=== PATIENT | female | born 1955 | race Caucasian/White ===

== ENCOUNTER 2017-07-18 12:30 | Inpatient (IN) | payer BC ==
[2017-07-22] MEDS ORDERED: FAMOTIDINE 20MG TABLET PO ONE (06:00)
[2017-07-22] MEDS ORDERED: METOCLOPRAMIDE 10 MG TABLET PO ONE (06:00)
[2017-07-22] MEDS ORDERED: CELECOXIB 100 MG CAPSULE PO ONE ×2 (06:00→16:27)
[2017-07-22] MEDS ORDERED: VANCOMYCIN HCL 1,000 MG in 0.9 % SODIUM CHLORIDE 250ML 250 ML IVPB ONE (06:00)
[2017-07-22] MEDS ORDERED: CEFAZOLIN 2 Gram 2 GM/50 ML BAG IVPB ONE (06:00)
[2017-07-22] MEDS ORDERED: MECLIZINE 25 MG TABLET PO ONE (06:00)
[2017-07-22] MEDS ORDERED: ACETAMINOPHEN 1,000 MG/100 ML BTL IV ONE (06:00)
[2017-07-22 06:49] LABS: ABO GROUP A; ANTIBODY SCREEN NEGATIVE (NEGATIVE); RH TYPE POSITIVE
[2017-07-22] MEDS ORDERED: KETOROLAC 30 MG/ML VIAL IVP PRN ×2 (10:06)
[2017-07-22] MEDS ORDERED: NALOXONE 0.4 MG/1 ML VIAL IVP PRN (10:06)
[2017-07-22] MEDS ORDERED: HYDROMORPHONE HCL 2 MG/ML VIAL IM PRN (10:06)
[2017-07-22] MEDS ORDERED: ACETAMINOPHEN W/ CODEINE 300MG/60MG TABLET PO PRN ×2 (10:06)
[2017-07-22] MEDS ORDERED: ACETAMINOPHEN 325 MG TAB PO PRN (10:06)
[2017-07-22] MEDS ORDERED: BISACODYL 10 MG SUPP RC PRN (10:06)
[2017-07-22] MEDS ORDERED: TRAMADOL HCL 50 MG TABLET PO PRN (10:06)
[2017-07-22] MEDS ORDERED: DIPHENHYDRAMINE HCL 25 MG CAPSULE PO PRN (10:06)
[2017-07-22] MEDS ORDERED: AL HYDROX/MAG HYDROX 30ML UD PO PRN (10:06)
[2017-07-22] MEDS ORDERED: MAGNESIUM HYDROXIDE 30 ML UDC PO PRN (10:06)
[2017-07-22] MEDS ORDERED: ZOLPIDEM TARTRATE 5 MG TABLET PO PRN (10:06)
[2017-07-22] MEDS ORDERED: ONDANSETRON HCL IV 4 MG/2 ML VIAL IVP PRN (10:06)
[2017-07-22] MEDS ORDERED: DOCUSATE SODIUM 100 MG PO PRN (11:10)
[2017-07-22] MEDS: HYDROMORPHONE HCL 1MG/ML **SYRINGE IM PRN ×2 (12:45→20:16)
[2017-07-22] MEDS: POTASSIUM CHLORIDE/D5-0.9%NACL 20 MEQ/1,000 ML BAG IV SCH ×2 (13:17→20:21)
--- NOTE | 2017-07-22 15:13 | Rehab Evaluation ---
Patient Information - Patient Information Diagnosis: L DJD Ordered Treatment: PT Evaluate and Treat Status: Initial Evaluation Surgery: Yes Date of Surgery: 07/22/17 Past Medical/Surgical Hx: PAST MEDICAL/SURGICAL HISTORY Past Surgical History right total knee; right knee arthroscopy; left knee arthroscopy; lap shaka; right shoulder NAYA; x 2; colonoscopy. PMH - Respiratory Hx Respiratory Disorders No PMH - Cardiovascular Hx Cardiovascular Disorders Yes Hx Hypertension Yes: meds good control Hx Heart Murmur Yes: as child-no problem Exercise Tolerance Good PMH - Neuro Hx Neurological Disorders No PMH - GI Hx Gastrointestinal Disorders Yes Hx Gastroesophageal Reflux Yes: pepcid rx PMH - Hx Genitourinary Disorders Yes Hx Bladder Problem Yes: stress incont-wears Depends PMH - Endocrine Hx Endocrine Disorders No PMH - Musculoskeletal Hx Musculoskeletal Disorders Yes Hx Arthritis Yes: knees Comment: Rickets as a child PMH - Psych Hx Psychiatric Problems No PMH - Hematology/Oncology Hx Hematology/Oncology Yes Disorders Hx Bruising Yes: easy to bruise Premorbid Status: Detail (The patient was independent with ambulation without device.) Social History: Detail (The patient lives with spouse in ranch style home with 3 steps at the enterance. The patient's bathroom is equipped with a regular tub /shower combination and a raised toilet seat. The patient's spouse stated his is borrowing a tub seat. The patient has a wheeled walker, single point and quad cane.) Precautions: Hitchcock, Other (WBAT on the L LE) - Time With Patient Total Time Spent With Patient (Min): 30 Treatment Procedures: Detail (Initial Evaluation) Subjective Information - Subjective Information Per Patient (The paitent had complaints of level 6 pain in L knee.) Objective Data - Mental Status Patient Orientation: Oriented x3 - Visual Perception Appears within normal limits for therapeutic activities - ROM Not within normal limits (The patient's L knee AROM was not tested secondary to status post surgery. All other LE AROM is WNL.) - Strength/Tone Not within normal limits (The patient's UE strength is generally 5/5, R LE strength 4+ to 5/5, L LE strength was functional the patient was able to lift L LE out of bed and required minimal assist using R LE to lift left back into bed. ) - Bed Mobility Independent (Independent with supine to and from sit transfer. The patient used R LE to lift L LE with sit to supine transfer.) - Transfers Independent (Independent sit to and from stand transfer and toilet transfer.) - Balance Balance Sitting: Good Balance Standing: Good (The patient was able to drapery cutter machine bathroom and pull up pants.) - Gait Detail (The patient ambulated independently with wheeled walker a disance of 13 feet x 2 with weight bearing as tolerated on the L LE with assist of one to handle IV.) - ADL's/IADL's Detail Therapy Assessment - Therapy Assessment Detail (The patient was independent with mobility and transfers. Home exercise program was reviewed including quad sets, gluteal set and ankle pumps. The patient will progress well with mobility.) Problem List - Problem List Physical Therapy Problem List: Detail (1) Decreased L knee AROM and L LE Strength 2) Inability to ambulate on stairs) Goals - Goals Physical Therapy Goals: 1) Independent with ambulation with assistive device 50 to 100 feet WBAT on the L LE. 2) Independent ambulation on stairs. 3) Independent with HEP Prognosis - Prognosis Good Plan - Plan Physical Therapy Plan: PT 2 times a day for gait training, transfer training and instruction in HEP until all inpatient PT goals are met.
[2017-07-22] MEDS ORDERED: HYDROMORPHONE HCL 2 MG/ML VIAL IV ONE (16:18)
[2017-07-22] MEDS ORDERED: LIDOCAINE 2% MDV (20MG/ML) 20ML VIAL IV ONE (16:18)
[2017-07-22] MEDS ORDERED: MIDAZOLAM HCL 2MG/2ML VIAL IV ONE (16:18)
[2017-07-22] MEDS ORDERED: 0.9 % SODIUM CHLORIDE 10 ML VIAL IVP ONE (16:18)
[2017-07-22] MEDS ORDERED: DIPHENHYDRAMINE HCL IV 50 MG/ML VIAL IVP ONE (16:18)
[2017-07-22] MEDS ORDERED: FENTANYL PF 100MCG/2ML VIAL IV ONE (16:18)
[2017-07-22] MEDS: HYDROCODONE/APAP 10/325 TABLET PO PRN ×3 (16:18→22:50)
[2017-07-22] MEDS ORDERED: EPHEDRINE SULFATE 50 MG/ML ML IV ONE (16:18)
[2017-07-22] MEDS ORDERED: PROPOFOL 10 MG/ML VIAL IV ONE (16:18)
[2017-07-22] MEDS: CEFAZOLIN 2 Gram 2 GM/50 ML BAG IVPB SCH ×2 (16:19→22:51)
[2017-07-22] MEDS ORDERED: BUPIVACAINE 0.5% W/EPI MPF 30 ML VIAL IVP ONE (16:27)
[2017-07-22] MEDS ORDERED: TRANEXAMIC ACID 1,000 MG/10 ML ML IV ONE (16:27)
--- NOTE | 2017-07-22 17:40 | Operative Note ---
DATE OF SURGERY: 07/22/2017 PREOPERATIVE DIAGNOSIS: End-stage arthrosis of the left knee. POSTOPERATIVE DIAGNOSIS: End-stage arthrosis of the left knee. OPERATION: Cemented left total knee arthroplasty using Killian [employer] Nephew Kristina II components with a size 5 Oxinium femur, a size 4 stem tibia baseplate, a 9 mm lipped highly cross-linked tibial insert, and a 35 mm all plastic patella. Surgeon: Jose Feldman MD Anesthesia: Spinal. PREPARATION: Chloraprep. INDIVIDUAL CONSIDERATIONS: None. PROCEDURE: The patient was taken to the operating room, placed supine on the operating room table. She had a successful induction with general anesthetic. The left lower extremity was prepped and draped in the usual fashion. The limb was elevated, tourniquet was inflated to 250 mmHg. The patient had midline approach to the knee. Sharp dissection carried down through skin and subcutaneous tissue. Small veins were coagulated with a Bovie. A medial arthrotomy was performed. The patella was everted and the knee was flexed. Patient had exposed bone in the patellofemoral compartment. The capsule was released to the medial proximal tibia. ACL was sacrificed. Provisional anterior meniscectomies were performed. The initial femoral stewardesses teacher hole was then made freehand. The intramedullary femoral cutting jig was placed. It was cut in 7.0 degrees of valgus and adjusted for rotation and secured with pins for a 10 mm resection. The initial transverse cut was then made. Skin guide was placed for the anterior and posterior stewardesses teacher holes. It was found that a size 5 would be appropriate but I did have to translate it anteriorly 2 mm using the translation guide. The anterior and posterior cuts followed by chamfer cuts were made. Osteophytes removed and a size 5 trial was placed and found to fit well. The tibia was brought forward and the remainder of the meniscal remnants removed with a Bovie. The extraarticular tibial cutting jig was placed. It was cut in neutral with a 3-degree AP slope. Care was taken to adjust the rotation and flexion using the extraarticular alignment guide and bony landmarks. It was set for a 9 mm resection keyed off the high lateral side and secured with pins. When cutting the tibia, care was taken to preserve the PCL insertion on the tibia. Osteophytes removed and I found I could fit a size 4. It was adjusted for rotation and secured with pins. The 9 mm trial and femoral trial, though, was excellent motion and stability, ligamentous balance, rotation, alignment, and patellofemoral tracking were normal. The femoral stewardesses teacher holes were impacted and the tri-flange tibial stamp was impacted, and these trial components were removed. The patient had a thick patella and I removed 9 mm using the oscillating saw. I was able to fit a 35 patella, and the 3 stewardesses teacher holes were drilled. Tourniquet was let down briefly to get bleeders posteriorly and then placed back up again. The knee was then thoroughly irrigated out with pulsatile Betadine and saline to remove any visual or palpable debris. Bony surfaces were then dried. The size 4 stem tibia baseplate was then cemented into place followed by impaction of the 9 mm highly crosslinked tibial insert followed by cementing of the size 5 Oxinium femur followed by cementing of the 35 mm patella. The implant surfaces were compressed, excess cement was removed, and after the cement had set, there was excellent motion and stability, ligamentous balance, rotation, alignment, and patellofemoral tracking were normal. No lateral release was required. The knee was then again thoroughly irrigated out with pulsatile Betadine and saline. The skin and subcutaneous tissue and periosteum were then infiltrated with 30 mL of 0.5% Marcaine with epinephrine. The capsule was then closed with a running #2 quill, subcu was closed with running 0 quill, skin was closed with sai, and a sterile bulky compressive Aquacel dressing was applied. Prior to this, I did mix 1 g of tranexamic acid with 30 mL of saline and injected into the knee. The patient did receive 1 g of tranexamic acid IV prior to the procedure. The patient tolerated the procedure well. Needle and sponge counts were correct. Estimated blood loss was minimal, and he was taken back to recovery in good condition. There were no complications. CC: Dr. Janell [place]
[2017-07-22] MEDS: DOCUSATE SODIUM 100 MG CAPSULE PO SCH (22:49)
[2017-07-23] MEDS: HYDROMORPHONE HCL 1MG/ML **SYRINGE IM PRN ×2 (01:23→05:28)
[2017-07-23] MEDS: CEFAZOLIN 2 Gram 2 GM/50 ML BAG IVPB SCH (06:50)
[2017-07-23] MEDS: HYDROCODONE/APAP 10/325 TABLET PO PRN ×4 (06:51→21:54)
[2017-07-23] MEDS: POTASSIUM CHLORIDE/D5-0.9%NACL 20 MEQ/1,000 ML BAG IV SCH ×3 (06:54→18:55)
[2017-07-23 06:55] LABS: HEMATOCRIT 34.2 % (35.0-47.0); HEMOGLOBIN 10.6 gm/dl (11.6-16.0)
[2017-07-23 07:10] LABS: BLOOD UREA NITROGEN 34.1 mg/dL (17.4-49.2)
[2017-07-23] MEDS: RIVAROXABAN 10 MG TABLET PO SCH (10:43)
[2017-07-23] MEDS: DOCUSATE SODIUM 100 MG CAPSULE PO SCH ×2 (10:43→21:53)
[2017-07-23] MEDS: FERROUS SULFATE 325 MG TAB PO SCH (10:43)
[2017-07-23] MEDS: BENAZEPRIL PO SCH (10:45)
[2017-07-23] MEDS: AMLODIPINE PO SCH (10:45)
[2017-07-23] MEDS: PATIENT OWN MED: METOPROLOL SUCCINATE 100 MG PO SCH (10:46)
[2017-07-23] MEDS: PATIENT OWN MED: FAMOTIDINE 20 MG PO SCH (10:46)
--- NOTE | 2017-07-23 11:54 | Physical Therapy Tx Note ---
Physical Therapy Tx Note - Treatment Note Tolerated: Good Total Time Spent With Patient: 30 Physical Therapy Tx Note: Detail (The patient complained of level 10 pain with movement in L LE. The patient was independent with sit to and from stand transfer. The patient ambulated 40 feet x 1 with wheeled walker WBAT on the L LE. The patient ambulated on 3 steps with use of one railing and folded walker WBAT on the L LE with supervision for safety and to steady walker. The patient' s observed the proper technique. The patient's HEP was reviewed including seated heel slides, hamstring sets, quadricep sets, gluteal sets and ankle pumps. The patient and her feel comfortable with all mobility and ambulation on levels and stairs. The patient has met all her inpatient PT goals. ) Physical Therapy Problem List: Detail (1) Decreased L knee AROM and L LE Strength 2) Inability to ambulate on stairs) Physical Therapy Goals: 1) Independent with ambulation with assistive device 50 to 100 feet WBAT on the L LE. 2) Independent ambulation on stairs. 3) Independent with HEP Physical Therapy Plan: The patient has met all inpatient PT goals and is discharged from PT. The patient is to receive Home PT.
[2017-07-23] MEDS ORDERED: OXYCODONE HCL 5 MG TABLET PO ONE (14:11)
--- NOTE | 2017-07-23 15:11 | Rehab Evaluation ---
Patient Information - Patient Information Diagnosis: L knee DJD Ordered Treatment: OT Evaluate and Treat Status: Initial Evaluation Surgery: Yes (left TKA) Date of Surgery: 07/22/17 Past Medical/Surgical Hx: PAST MEDICAL/SURGICAL HISTORY Past Surgical History right total knee; right knee arthroscopy; left knee arthroscopy; lap shaka; right shoulder NAYA; x 2; colonoscopy. PMH - Respiratory Hx Respiratory Disorders No PMH - Cardiovascular Hx Cardiovascular Disorders Yes Hx Hypertension Yes: meds good control Hx Heart Murmur Yes: as child-no problem Exercise Tolerance Good PMH - Neuro Hx Neurological Disorders No PMH - GI Hx Gastrointestinal Disorders Yes Hx Gastroesophageal Reflux Yes: pepcid rx PMH - Hx Genitourinary Disorders Yes Hx Bladder Problem Yes: stress incont-wears Depends PMH - Endocrine Hx Endocrine Disorders No PMH - Musculoskeletal Hx Musculoskeletal Disorders Yes Hx Arthritis Yes: knees Comment: Rickets as a child PMH - Psych Hx Psychiatric Problems No PMH - Hematology/Oncology Hx Hematology/Oncology Yes Disorders Hx Bruising Yes: easy to bruise Premorbid Status: Detail (The patient was independent with ambulation without device.) Social History: Detail (Pt lives with spouse in a 1 story house with basement, she stays on the first floor. She has 2 steps with handrailing at the entrance. She has a walk in shower and a tub/shower combination an elevated and standard height toilet seat and grab bars throughout bathroom. She was Ind with showering, dressing, home mgmt, meal prep, laundry and driving although her spouse will be assisting after discharge. She has a 2 wheeled walker, 3 point cane, straight cane, commode, wheelchair, tire mechanic and sock aid.) Precautions: Garibaldi, Other (WBAT on the L LE) - Time With Patient Total Time Spent With Patient (Min): 45 Treatment Procedures: Detail (OT eval low complexity) Subjective Information - Subjective Information Per Patient Objective Data - Pain Pain Present: Yes (04/19 left knee) - Mental Status Patient Orientation: Oriented x3 - Visual Perception Appears within normal limits for therapeutic activities (Pt wears glasses) - ROM Within normal limits (Geronimo UE AROM WNL) - Strength/Tone Within normal limits (Geronimo UE strength WNL) - Coordination Appears within normal limits for therapeutic activities - Bed Mobility Needs Assist (Ind with supine to sit, min assist to lift left leg for sit to supine.) - Transfers Independent (Ind with sit to stand) - Balance Balance Sitting: Good Balance Standing: Good - Sensation Intact - ADL's/IADL's Detail (Pt able to demonstrate Ind with LE dressing including shorts, socks and sandals. Reviewed modified dressing technique and pt was able to demonstrate.) Therapy Assessment - Therapy Assessment Detail (Pt was Ind with LE dressing and able to demonstrate modified dressing technique.) Problem List - Problem List Physical Therapy Problem List: Detail (1) Decreased L knee AROM and L LE Strength 2) Inability to ambulate on stairs) Occupational Therapy Problem List: Detail (No current OT problems identified.) Goals - Goals Physical Therapy Goals: 1) Independent with ambulation with assistive device 50 to 100 feet WBAT on the L LE. 2) Independent ambulation on stairs. 3) Independent with HEP Occupational Therapy Goals: No current OT goals identified. Prognosis - Prognosis Good Plan - Plan Physical Therapy Plan: The patient has met all inpatient PT goals and is discharged from PT. The patient is to receive Home PT. Occupational Therapy Plan: No further IP OT needed. Recommend home OT visit to assess ADLs/IADLs in the home setting.
[2017-07-24] MEDS: HYDROCODONE/APAP 10/325 TABLET PO PRN ×5 (02:04→21:04)
[2017-07-24 06:37] LABS: HEMATOCRIT 32.3 % (35.0-47.0); HEMOGLOBIN 10.2 gm/dl (11.6-16.0)
[2017-07-24 06:49] LABS: BLOOD UREA NITROGEN 25.8 mg/dL (17.4-49.2); CREATININE 0.9 mg/dL (0.5-0.9); EST GLOMERULAR FILTRATION RATE > 60 mL/min; GLUCOSE,RANDOM 130 mg/dL (74-109)
[2017-07-24] MEDS: DOCUSATE SODIUM 100 MG CAPSULE PO SCH ×2 (10:38→21:03)
[2017-07-24] MEDS: FERROUS SULFATE 325 MG TAB PO SCH (10:38)
[2017-07-24] MEDS: RIVAROXABAN 10 MG TABLET PO SCH (10:38)
[2017-07-24] MEDS: BENAZEPRIL PO SCH (10:55)
[2017-07-24] MEDS: AMLODIPINE PO SCH (10:55)
[2017-07-24] MEDS: PATIENT OWN MED: METOPROLOL SUCCINATE 100 MG PO SCH (10:56)
[2017-07-24] MEDS: PATIENT OWN MED: FAMOTIDINE 20 MG PO SCH (10:56)
--- NOTE | 2017-07-24 11:50 | Discharge Summary ---
DATE OF ADMISSION: 07/22/2017 DATE OF DISCHARGE: 07/23/2017 DATE OF SURGERY: 07/22/2017 HISTORY: The patient is a delightful 62-year-old female who presents with end- stage arthrosis of the left knee. She was admitted after a left total knee arthroplasty. Postoperatively she did well. Her hospital course was unremarkable. She did not require transfusion. The plan is to discharge her home in the care of her family. Home PT visiting nurse has been obtained. She will begin on Xarelto for DVT prophylaxis. She will take a short course of OxyIR followed by Maria R for pain. She will follow up in my office in 4 weeks. The visiting nurse will remove her sutures in 4 weeks. Her discharge condition was good. FINAL DIAGNOSIS: End-stage arthrosis of the left knee. OPERATIONS AND PROCEDURES: Cemented left total knee arthroplasty. ADDENDUM 07/25/2017 @ 1115 The patient was originally going to be discharged on 07/23/2017. That morning she developed shortness of breath and a bit of tachycardia. Dr. Rand was called. The thought was initially that she was over-sedated, and she responded to that but she continued to have problems maintaining oxygenation. CT angiogram was done of the chest, and a small pulmonary embolism was discovered. This was in spite of the fact that she had been maintained on Xarelto for DVT prophylaxis. She did well on oxygen and was mobilizing well on oxygen and was otherwise hemodynamically stable and was followed by Dr. Rand while in the hospital. The plan now is to transfer to home. Her discharge date was changed to 07/25/2017. Visiting nurse will monitor her O2 status and wean as necessary. Her discharge medications will be changed. She will be started on Xarelto 15 mg twice a day and then that will be maintained for 3 weeks and then probably go to 20 mg a day for a period of time as determined by her primary care doctor. I did call her primary care doctor and told her what was going on. They are going to see her in the office in 2 weeks to take a look at management of this issue. I also told the nurse to tell the patient to make sure that along with seeing me in a month, she should make sure to see her primary care doctor in 2 weeks to continue with the care of this pulmonary embolus. Her hospital course and discharge are otherwise unchanged. ANANT
--- NOTE | 2017-07-24 12:33 | RADIOLOGY REPORT ---
EXAM: PORTABLE CHEST HISTORY: SUDDEN ONSET OF CHEST PAIN WITH DIFFICULTY IN BREATHING TWO DAYS AGO POST TOTAL KNEE ARTHROPLASTY. TECHNIQUE: A single mobile semi-erect view of the chest was obtained. Comparison: None. FINDINGS: The cardiac silhouette projects enlarged, mild in degree. There is borderline pulmonary venous hypertension. Minor patchy opacities are noted within the right lung base consistent with atelectasis or less likely infiltrate. The lungs and pleural spaces are otherwise clear. IMPRESSION: 1. MILD CARDIOMEGALY WITH BORDERLINE PULMONARY VENOUS HYPERTENSION. 2. MINOR PATCHY OPACITIES IN THE RIGHT LUNG BASE LIKELY RELATING TO ATELECTASIS OR LESS LIKELY INFILTRATE. JOB NUMBER: [id number] MTDD
[2017-07-25 06:41] LABS: HEMATOCRIT 31.6 % (35.0-47.0); HEMOGLOBIN 9.9 gm/dl (11.6-16.0); MEAN CELL VOLUME 95.8 fl (81-97); MEAN CORPUSCULAR HGB CONC 31.3 g/dl (32-36); PLATELET COUNT 176 K/uL (130-400); RED CELL DISTRIBUTION WIDTH 13.8 % (11.5-14.5); WHITE BLOOD COUNT W/O DIFF 9.5 K/uL (4.2-12.2)
[2017-07-25 07:02] LABS: PLATELET ESTIMATE NORMAL (NORMAL)
[2017-07-25 07:32] LABS: ALBUMIN 3.3 g/dL (4.0-5.0); ALKALINE PHOSPHATASE 122 U/L (35-104); ALT/SGPT 46 U/L (<33); AST/SGOT 36 U/L (10.0-35.0); BLOOD UREA NITROGEN 21.2 mg/dL (17.4-49.2); CREATININE 0.7 mg/dL (0.5-0.9); EST GLOMERULAR FILTRATION RATE > 60 mL/min; GLUCOSE,RANDOM 140 mg/dL (74-109); TOTAL PROTEIN 6.5 g/dL (6.6-8.7)
--- NOTE | 2017-07-25 08:56 | CT ANGIOGRAM REPORT ---
EXAM: CTA OF THE CHEST WITH CONTRAST HISTORY: DIFFICULTY BREATHING. TECHNIQUE: CTA of the chest was performed after intravenous administration of 100 ml of Omnipaque 350 contrast material. Sagittal and coronal MIP images were performed on an independent workstation. Comparison: None. FINDINGS: There is suboptimal opacification of the pulmonary vasculature. There appear to be filling defects in the left lower lobar arterial branches consistent with pulmonary embolism. There is infiltrate in both lung bases. No pleural effusion. There is cardiomegaly without pericardial effusion. No mediastinal or hilar lymphadenopathy. IMPRESSION: 1. SUBOPTIMAL TIMING OF THE CONTRAST BOLUS. THERE APPEAR TO BE PULMONARY EMBOLI IN THE LEFT LOWER LOBE. 2. BILATERAL LOWER LOBE INFILTRATES. NO PLEURAL EFFUSION. 3. CARDIOMEGALY WITHOUT PERICARDIAL EFFUSION. JOB NUMBER: [id number] MTDD
[2017-07-25] MEDS: HYDROCODONE/APAP 10/325 TABLET PO PRN (09:07)
[2017-07-25] MEDS: DOCUSATE SODIUM 100 MG CAPSULE PO SCH (09:07)
[2017-07-25] MEDS: FERROUS SULFATE 325 MG TAB PO SCH (09:08)
[2017-07-25] MEDS: PATIENT OWN MED: FAMOTIDINE 20 MG PO SCH (09:08)
[2017-07-25] MEDS: BENAZEPRIL PO SCH (09:09)
[2017-07-25] MEDS: AMLODIPINE PO SCH (09:09)
[2017-07-25] MEDS: PATIENT OWN MED: METOPROLOL SUCCINATE 100 MG PO SCH (09:09)
[2017-07-25] MEDS ORDERED: RIVAROXABAN 15 MG TABLET PO SCH (10:00)
--- NOTE | 2017-07-25 11:10 | Consult ---
Consult Order Detail - Reason for Consult Consult Date: 07/23/17 - Chief Complaint Chief Complaint: DEGENERATIVE JOINT DISEASE LEFT KNEE HPI Consult - History of Present Illness Admitting Diagnosis: djd left knee History of Present Illness: Ms. Swanson is a 61 y/o female who was admitted post-operatively for left total knee athroplasty. Post-op day #2 a medicine consult was placed for the patient' s new onset shortness of breath desaturation. The patient also reports feeling of nausea just after meals and severe pain in her left knee but no distal lower extremity swelling. She has no previous history of cardiac or lung disease and denies any history of clots or bleeding. On initial evaluation the patient appeared clinically stable with mild shortness of breath and sats in the low 90s on 3-4 liters of oxygen. She was set to be discharged on 07/23 but her symptoms progressed later in the day and she was kept overnight for observation. The patient was unable to tolerate in down titration of oxygen and desaturated in the 80s. She then complained of increasing shortness of breath and chest pain. Stat labs for troponins, and ECG and CXR was ordered which were unrevealing. CTPE was ordered which did show evidence of emboli in the left lower lung lobe. The patient has been on anticoagulation with xarelto post- operatively. ROS Constitutional: Reports: As per HPI. Denies: Chills, Fever, Malaise, Night sweats, Weakness, Weight change Eyes: Reports: As per HPI. Denies: Eye discharge, Eye pain, Photophobia, Vision change - ENT ENT: Reports: As per HPI. Denies: Congestion, Dental pain, Ear pain, Epistaxis , Hearing loss, Throat pain - Respiratory Respiratory: Reports: Other (Shortness of breath) - Cardiovascular Cardiovascular: Reports: Chest pain - Endocrine Endocrine: Reports: As per HPI. Denies: Fatigue, Heat or cold intolerance, Polydipsia, Polyuria - Gastrointestinal Gastrointestinal: Reports: As per HPI. Denies: Abdominal pain, Constipation, Diarrhea, Hematemesis, Hematochezia, Melena, Nausea, Vomiting - Genitourinary Genitourinary: Reports: As per HPI. Denies: Abnormal menses, Discharge, Dyspareunia, Dysuria, Frequency, Hematuria, Incontinence, Retention, Urgency - Musculoskeletal Musculoskeletal: Reports: Other (left knee pain) - Skin Skin: Reports: As per HPI. Denies: Bruising, Change in color, Change in hair/ nails, Lesions, Pruritus, Rash - Hematological/Lymphatic Hematological/Lymphatic: Reports: As per HPI. Denies: Anemia, Blood Clots, Easy bleeding, Easy bruising, Swollen glands Past Medical History - SOCIAL HISTORY Smoking Status: Former smoker Alcohol Use: Occasional Drug Use: None - RESPIRATORY Hx Respiratory Disorders: No - CARDIOVASCULAR Hx Cardio Disorders: Yes Hx Hypertension: Yes (meds good control) - NEURO Hx Neuro Disorders: No - GI Hx GI Disorders: Yes Hx Reflux: Yes (pepcid rx) - Hx Genitourinary Disorders: Yes Hx Bladder Problem: Yes (stress incont-wears Depends) - ENDOCRINE Hx Endocrine Disorders: No - MUSCULOSKELETAL Hx Musculoskeletal Disorders: Yes Hx Arthritis: Yes (knees) Comment:: Rickets as a child - PSYCH Hx Psych Problems: No - HEMATOLOGY/ONCOLOGY Hx Hematology/Oncology Disorders: Yes Hx Bruising: Yes (easy to bruise) Family Medical History Any Significant Family History?: Yes Hx Alcohol Use: Father, Mother Hx Cancer: Brother/Sister *Cancer Comment: 2 sisters -breast CA Hx Diabetes: Brother/Sister *Diabetes Comment: sister Hx Heart Disease: Father Hx HTN: Father H&P Meds - Home Medications and Allergies Allergies Allergy/AdvReac Type Severity Reaction Status Date / Time aspirin Allergy Severe ANAPHYLAXIS Verified 07/18/17 11:49 Physical Exam - Vital Signs Vital Signs: Vital Signs - Last 24 Hrs Temp Pulse Pulse Resp BP Pulse Ox 07/25/17 10:18 93 L 07/25/17 09:00 20 07/25/17 08:00 106 H 20 128/69 93 L 07/25/17 04:52 99.7 F H 103 H 22 136/73 93 L 07/24/17 23:00 98.1 F 88 20 119/73 94 L 07/24/17 20:10 94 H 94 L 07/24/17 18:50 91 H 22 114/57 3 L 07/24/17 14:59 98.4 F 85 18 132/73 97 - General General Appearance: Alert, Oriented x3, Moderate distress Limitations: No limitations - Head Head exam: Atraumatic, Normocephalic - Eye Eye exam: Normal appearance, PERRL - ENT ENT exam: Mucous membranes moist Ear exam: Normal external inspection Nasal Exam: Normal inspection Throat exam: Normal inspection - Neck Neck exam: Normal inspection, Full ROM - Respiratory Respiratory exam: Normal lung sounds bilaterally, Chest wall tenderness. negative: Stridor, Wheezes - Cardiovascular Cardiovascular Exam: Regular rate, Normal rhythm, Clicks - GI/Abdominal GI/Abdominal exam: Soft, Normal bowel sounds - Rectal Rectal exam: Deferred - exam: Deferred - Extremities Extremities exam: Tenderness (left knee ). negative: Calf tenderness, Pedal edema - Skin Skin exam: Dry, Intact, Normal color, Warm Results - Labs Result Diagrams: 07/25/17 06:15 07/25/17 06:15 Labs Last 24 Hours: Laboratory Results - last 24 hr 07/24/17 07/24/17 07/25/17 06:05 10:41 06:15 WBC 9.5 Corrected WBC RBC 3.30 L Hgb 9.9 L Hct 31.6 L MCV 95.8 MCH 30.0 MCHC 31.3 L RDW 13.8 Plt Count 176 MPV 11.0 H Gran % Neutrophils % 91.0 H Band Neutrophils % Lymphocytes % Monocytes % Eosinophils % Not Reportable Basophils % Not Reportable Lymphocytes 5.0 L Monocytes 4.0 Basophils Metamyelocytes Myelocytes Promyelocytes Nucleated RBCs Differential Comment Hypersegmented Polys Plasma Cells Other Cell Type Toxic Granulation Dohle Bodies Abigail Rods Platelet Estimate Normal RBC Morphology Normal Polychromasia Hypochromasia Poikilocytosis Basophilic Stippling Anisocytosis Microcytosis Macrocytosis Spherocytes Sickle Cells Target Cells Tear Drop Cells Ovalocytes Stomatocytes Helmet Cells [place] Bodies [place] Rings [place] Cells Acanthocytes (Spur) Rouleaux Schistocytes Morphology Comment Eosinophil Count Sodium Potassium Chloride Carbon Dioxide Anion Gap BUN Creatinine Estimated GFR Random Glucose Calcium Total Bilirubin AST ALT Alkaline Phosphatase Troponin I < 0.30 < 0.30 Total Protein Albumin Globulin Albumin/Globulin Ratio 07/25/17 07/25/17 06:15 06:15 WBC Cancelled Corrected WBC Cancelled RBC Cancelled Hgb Cancelled Hct Cancelled MCV Cancelled MCH Cancelled MCHC Cancelled RDW Cancelled Plt Count Cancelled MPV Cancelled Gran % Cancelled Neutrophils % Cancelled Band Neutrophils % Cancelled Lymphocytes % Cancelled Monocytes % Cancelled Eosinophils % Cancelled Basophils % Cancelled Lymphocytes Cancelled Monocytes Cancelled Basophils Cancelled Metamyelocytes Cancelled Myelocytes Cancelled Promyelocytes Cancelled Nucleated RBCs Cancelled Differential Comment Cancelled Hypersegmented Polys Cancelled Plasma Cells Cancelled Other Cell Type Cancelled Toxic Granulation Cancelled Dohle Bodies Cancelled Abigail Rods Cancelled Platelet Estimate Cancelled RBC Morphology Cancelled Polychromasia Cancelled Hypochromasia Cancelled Poikilocytosis Cancelled Basophilic Stippling Cancelled Anisocytosis Cancelled Microcytosis Cancelled Macrocytosis Cancelled Spherocytes Cancelled Sickle Cells Cancelled Target Cells Cancelled Tear Drop Cells Cancelled Ovalocytes Cancelled Stomatocytes Cancelled Helmet Cells Cancelled [place]edi-[place] Bodies Cancelled [place] Rings Cancelled [place] Cells Cancelled Acanthocytes (Spur) Cancelled Rouleaux Cancelled Schistocytes Cancelled Morphology Comment Cancelled Eosinophil Count Cancelled Sodium 135 L Potassium 3.9 Chloride 96 L Carbon Dioxide 27.0 Anion Gap 12.0 BUN 21.2 Creatinine 0.7 Estimated GFR > 60 Random Glucose 140 H Calcium 8.7 L Total Bilirubin 0.80 AST 36 H ALT 46 H Alkaline Phosphatase 122 H Troponin I Total Protein 6.5 L Albumin 3.3 L Globulin 3.2 Albumin/Globulin Ratio 1.0 L Assessment and Plan - Assessment and Plan (1) Pulmonary embolism on left Plan: - Well's criteria: >7, high-risk - CTPE, positive for LLL emboli, currently on xarelto 15mg QD, increase to BID - keep oxygen to maintain o2 sats > 92 %, will likely require temporary home O2 - elevate head of bed and keep incentive spirometry at bedside with demonstration of use. - continue respiratory therapy w/ albuterol PRN - taper narcotics as tolerated and discontinue sedative hypnotics as they may further suppress respiratory drive. - cont PT/OT as ordered for ambulation and strength. - all other management as per surgical team. Addendum: pts PCP: Dr. Sampson has been made aware of events and will see the patient in 2 weeks. She is to follow up with Dr. Feldman thereafter. Current Visit: Yes Status: Acute Base Code: I26.99 - OTHER PULMONARY EMBOLISM WITHOUT ACUTE COR PULMONALE - Disposition Disposition: Will sign-off. No further medical management at this time.
== END 2017-07-25 14:05 | disposition home or self-care (01) | DRG 470 ==
LOC: UNDOADMIN 07-22 05:54 → MEDSURG 07-22 05:54
PROVIDERS: ADMIT Orthopaedic Surgery; ATTEND Orthopaedic Surgery
PROC: 0SRD0J9 Replacement of Left Knee Joint with Synthetic Substitute, Cemented, Open Approach (ICD-10-PCS; principal; 2017-07-22 08:00)
DX: M17.12 Unilateral primary osteoarthritis, left knee (principal); I10 Essential (primary) hypertension; E78.00 Pure hypercholesterolemia, unspecified
CPT/HCPCS: 71010; 71275; 80048; 80053; 84484; 85014; 85018; 85027; 86850; 86900; 86901; 93005; 93010; 94620; 94760; 94761; 97110; 97165; 97530; C1776; J1170; J1200; J2405; J3480; J7050